=== PATIENT | female | born 1960 | race Caucasian/White ===

== ENCOUNTER → 2020-11-01 | Outpatient (CLI) | payer OTHER ==
[~2020-11-01] MED LIST: CATAPRES0.1 MG PO
== END ==
LOC: KOH-I 11:15
DX: M79.641 Pain in right hand (principal)
CPT/HCPCS: 73130; 73140

== ENCOUNTER → 2021-09-27 | Outpatient (CLI) | payer OTHER | LOC: KOH-I 09-03 14:00 | DX: Z87.891 Personal history of nicotine dependence (principal) | CPT/HCPCS: 71271 ==